=== PATIENT | female | born 1975 | race Caucasian/White ===

== ENCOUNTER 2016-08-13 07:30 | Emergency (ER) | payer BC | END 2016-08-13 10:07 | disposition home or self-care (01) | LOC: ER 07:30 | DX: J44.0 Chronic obstructive pulmonary disease with (acute) lower respiratory infection (principal); J20.9 Acute bronchitis, unspecified; E11.9 Type 2 diabetes mellitus without complications; J18.9 Pneumonia, unspecified organism; Z79.4 Long term (current) use of insulin; Z88.5 Allergy status to narcotic agent | CPT/HCPCS: 96372; J1100 ==